=== PATIENT | female | born 1980 | race Caucasian/White ===

== ENCOUNTER → 2017-02-12 | Outpatient (CLI) | payer OTHER ==
[2017-02-12 14:24] LABS: Hemoglobin A1C 5.5 % (4.2-6.1)
== END | disposition home or self-care (01) ==
LOC: LABWHC1 10:21
PROVIDERS: ATTEND Pediatrics
DX: R73.01 Impaired fasting glucose (principal)
CPT/HCPCS: 36415; 83036

== ENCOUNTER → 2020-12-05 | Outpatient (CLI) | payer OTHER ==
--- NOTE | 2020-12-08 14:51 | MM ---
Reason for exam: screening (asymptomatic). Baseline mammogram. History: Family history of breast cancer in paternal aunt. Took hormonal contraceptives for 8 years beginning at age 18. Physical Findings: Nurse did not find any significant physical abnormalities on exam. MG 3D Screening Mammo W/Cad Bilateral CC and MLO view(s) were taken. Scattered fibroglandular tissue is seen bilaterally. Multiple bilateral asymmetries and medial right ultrasound and inferior central and left upper outer quadrant ultrasound are recommended. ASSESSMENT: Incomplete: need additional imaging evaluation, BI-RAD 0 RECOMMENDATION: Ultrasound of both breasts. [facility] will attempt to contact patient to return for ultrasound. DAVION
== END | disposition home or self-care (01) ==
LOC: RADMAMWWP 14:04
PROVIDERS: ATTEND Obstetrics & Gynecology
DX: Z12.31 Encounter for screening mammogram for malignant neoplasm of breast (principal); Z80.3 Family history of malignant neoplasm of breast
CPT/HCPCS: 77063; 77067

== ENCOUNTER → 2020-12-29 | Outpatient (CLI) | payer OTHER ==
--- NOTE | 2020-12-29 10:46 | USB ---
Reason for exam: additional evaluation requested from abnormal screening. History: Family history of breast cancer in paternal aunt. Took hormonal contraceptives for 8 years beginning at age 18. Physical Findings: Nurse did not find any significant physical abnormalities on exam. US Breast Workup Limited JARETT Right limited breast ultrasound including focal area of concern, retroareolar and axilla demonstrates a 6 x 3 x 7mm oval, cystic lesion at 2 o'clock and a 6 x 4 x 6mm oval, solid, hypoechoic lesion at 3 o'clock. Left limited breast ultrasound including focal area of concern, retroareolar and axilla demonstrates a 6 x 2 x 4mm oval, cystic lesion at 3 o'clock. These results were verbally communicated with the patient and result sheet given to the patient on 12/29/20. ASSESSMENT: Probably benign, BI-RAD 3 RECOMMENDATION: Follow-up diagnostic mammogram and ultrasound of both breasts in 6 months.
== END | disposition home or self-care (01) ==
LOC: RADUSWWP 08:05
PROVIDERS: ATTEND Obstetrics & Gynecology
DX: N60.01 Solitary cyst of right breast (principal); N60.02 Solitary cyst of left breast; Z80.3 Family history of malignant neoplasm of breast

== ENCOUNTER → 2021-08-10 | Outpatient (CLI) | payer OTHER ==
--- NOTE | 2021-08-11 12:11 | MM ---
Reason for exam: follow-up at short interval from prior study. Last mammogram was performed 8 months ago. History: Family history of breast cancer in paternal aunt. Took hormonal contraceptives for 8 years beginning at age 18. Physical Findings: A clinical breast exam by your physician is recommended on an annual basis and results should be correlated with mammographic findings. MG 3D Diag Mammo W/Cad JARETT Bilateral CC and MLO view(s) were taken. LM, spot compression CC, and spot compression MLO view(s) were taken of the left breast. Prior study comparison: December 05, 2020, bilateral MG 3d screening mammo w/cad. There are scattered fibroglandular densities. Finding: There is a typically benign, increased 7 mm equal density (isodense), circumscribed oval mass located 8 cm from the nipple in the lower outer quadrant, middle position of the right breast. There is a chronic nodularity bilaterally. On MLO there are increased hyperdense oval densities. New finding since December 05, 2020. These results were verbally communicated with the patient and result sheet given to the patient on 08/10/21. ASSESSMENT: Incomplete: need additional imaging evaluation, BI-RAD 0 RECOMMENDATION: Ultrasound of both breasts.
--- NOTE | 2021-08-11 12:52 | USB ---
Reason for exam: additional evaluation requested from abnormal screening. History: Family history of breast cancer in paternal aunt. Took hormonal contraceptives for 8 years beginning at age 18. US Breast Limited BILAT Right limited breast ultrasound including focal area of concern, retroareolar and axilla demonstrates a 0.8 x 0.5 x 0.9cm cystic lesion at 2 o'clock, a 0.6 x 0.3 x 0.9cm solid lesion at 3 o'clock and a 0.5 x 0.5 x 0.6cm solid lesion at 4 o'clock. Biopsy solid lesions. Left limited breast ultrasound including focal area of concern, retroareolar and axilla demonstrates a 0.5 x 0.2 x 0.4cm lesion at 3 o'clock, a 1.5 x 1.0 x 1.4cm lobular, solid lesion at the nipple, biopsy recommended and a 0.6 x 0.6 x 0.8cm solid adjacent lesion at the nipple, biopsy recommended. These results were verbally communicated with the patient and result sheet given to the patient on 08/10/21. ASSESSMENT: Suspicious, BI-RAD 4 RECOMMENDATION: Ultrasound core biopsy of both breasts. (4 sites) Called Dr. Mayorga's office with mammographic findings and has scheduled an appointment for the patient for 09/18/21 at 4:[address] Bee. Biopsy scheduled for 09/23/21 at 8:00. PRELIMINARY REPORT CALLED AND FAXED TO DR. BEE ON 08/10/21.
== END | disposition home or self-care (01) ==
LOC: RADMAMWWP 13:29
PROVIDERS: ATTEND Obstetrics & Gynecology
DX: R92.8 Other abnormal and inconclusive findings on diagnostic imaging of breast (principal); Z80.3 Family history of malignant neoplasm of breast
CPT/HCPCS: 77062; 77066

== ENCOUNTER → 2021-09-18 | Outpatient (CLI) | payer OTHER ==
[2021-09-18 12:58] VITALS: BP 127/86; PULSE 81; RESP 16; TEMP 98.4
--- NOTE | 2021-09-18 13:49 | P.GSHP ---
History of Present Illness H&P Date: 09/18/21 Chief Complaint: Abnormal bilateral ultrasound of the breast Ananya is a 40 year old white female seen in consultation for Dr. Mayorga demonstrating radiographic abnormality in both breasts. She does not feel any lumps masses or nodules of concern in either breast. On a routine mammogram performed in she was recommended to undergo bilateral breast ultrasounds. This was performed on . The ultrasound revealed 2 solid lesions of concern in the right breast located at 3:00 and one at 4:00 and 2 solid lesions of concern in the left breast. Near the nipple areolar complex. Recommendation was for ultrasound-guided core biopsy of 4 sites 2 in each breast. The patient has never had any surgery on her breasts before. She has not had any nipple discharge or skin changes. She is not complaining of any recent trauma or infection of the breast. The patient is not taking any hormone replacement therapy. Caffeine:16 oz of mountian dew/day; 1 cup coffee/day nicotine: none chocolate: rare BCP: used them until 2005 (7 years) Family History: Aunt paternal: metastatic breast cancer Paternal grandfather: Skin cancer Paternal grandmother: Colon cancer Hormonal History: menarche: 12 , breast fed; no, age at first : 29 Surgical history: Laparoscopic examination of the fallopian tubes Medical history: Polycystic ovarian disease induced congestive heart failure Social History: nicotine: none alcohol: rare drugs: none - Constitutional Constitutional: Denies chills, Denies fever - EENT Eyes: denies blurred vision, denies pain Ears: deny: decreased hearing, tinnitus Ears, nose, mouth and throat: Denies headache, Denies sore throat - Breasts Breasts: bilateral: as per HPI - Cardiovascular Cardiovascular: Reports as per HPI - Respiratory Respiratory: Denies cough, Denies 7 - Gastrointestinal Gastrointestinal: Denies abdominal pain, Denies diarrhea, Denies nausea, Denies vomiting - Genitourinary (Female) Genitourinary: Denies dysuria, Denies hematuria - Menstruation Menstruation: Reports period normal - Musculoskeletal Musculoskeletal: Denies myalgias - Integumentary Integumentary: Denies pruritus, Denies rash - Neurological Neurological: Denies numbness, Denies weakness - Psychiatric Psychiatric: Denies anxiety, Denies depression - Endocrine Endocrine: Denies fatigue, Denies weight change - Hematologic/Lymphatic Comment: none - Allergic/Immunologic Allergic/Immunologic: Reports as per HPI Past Medical History Past Medical History: No Reported History Additional Past Medical History / Comment(s): Oligomenorrhea and infertility, congestive heart failure 2014 History of Any Multi-Drug Resistant Organisms: None Reported Additional Past Surgical History / Comment(s): OVARIAN SURGERY Past Anesthesia/Blood Transfusion Reactions: No Reported Reaction Past Psychological History: No Psychological Hx Reported Smoking Status: Never smoker Past Alcohol Use History: None Reported Past Drug Use History: None Reported - Past Family History Father Family Medical History: Hypertension Mother Family Medical History: Hypertension, Myocardial Infarction ([place]) Medications and Allergies Home Medications Medication Instructions Recorded Confirmed Type Acetaminophen Tab [Tylenol Tab] 325 mg PO Q6H PRN 12/17/14 09/18/21 History Ibuprofen [Motrin] 200 - 400 mg PO Q6HR PRN 12/17/14 09/18/21 History Furosemide [Lasix] 40 mg PO DAILY PRN 09/16/21 09/18/21 History Allergies Allergy/AdvReac Type Severity Reaction Status Date / Time No Known Allergies Allergy Verified 09/18/21 12:53 Surgical - Exam Vital Signs Temp Pulse Resp BP Pulse Ox 98.4 F 81 16 127/86 99 09/18/21 12:54 09/18/21 12:54 09/18/21 12:54 09/18/21 12:54 09/18/21 12:54 BMI 39.3 - General no distress - Eyes normal ocular movement - ENT no hearing loss, no congestion - Neck trachea midline - Respiratory normal respiratory effort - Cardiovascular Rhythm: regular Heart Sounds: normal: S1, S2 - Abdomen Abdomen: soft - Integumentary normal turgor - Neurologic no disoriented, no combative - Musculoskeletal normal gait, normal posture - Psychiatric oriented to time, oriented to person, oriented to place, speech is normal, memory intact Breast Exam: BRA: 38C inspection: Bilateral grade 3 ptosis Palpation: Right breast: Multi-positional exam fibrocystic changes no discrete dominant masses or nodules of concern Right axilla: No adenopathy of concern Left breast: Multi-positional exam fibrocystic changes no dominant masses or nodules of concern Left axilla: No adenopathy of concern Results Mammogram and ultrasound reviewed in detail with Dr. You Assessment and Plan Assessment: Impression: Radiographic abnormality bilateral breast/solid lesion 3:00 and 4:00 right breast on ultrasound Left breast solid lesion at the nipple 2 Plan: Ultrasound core biopsy 2 solid lesions in the right breast at 3:00 and 4:00, ultrasound core biopsy 2 solid lesions in the left breast at the level of the nipple This was reviewed with Dr. You Follow up after ultrasound core biopsies Risks and benefits of the procedure discussed with the patient she understands and wishes to proceed CC: Dr. Mayorga
== END ==
LOC: WWCWWP 12:05
PROVIDERS: ATTEND Surgery
DX: R92.8 Other abnormal and inconclusive findings on diagnostic imaging of breast (principal); I50.9 Heart failure, unspecified

== ENCOUNTER → 2021-09-23 | Day surgery (SDC) | payer OTHER ==
[2021-09-23 07:27] VITALS: RESP 16
[2021-09-23 09:20] VITALS: BP 117/79; PULSE 74; TEMP 98.1
--- NOTE | 2021-09-23 12:44 | USB ---
EXAMINATION TYPE: US biopsy breast VAD RT DATE OF EXAM: 09/23/2021 CLINICAL HISTORY: R92.8 ABNORMAL MAMMOGRAM. Abnormal ultrasound TECHNIQUE: Ultrasound guided vaccuum assisted core biopsy of bilateral breasts. Prior ultrasound is reviewed with the referring surgeon. There appear to be 2 lesions within each breast. However, the lesions are directly adjacent. The lesions will be biopsied in tandem and submitted is a single sample, one sample for each breast. COMPARISON: Ultrasound 08/10/2021 FINDINGS: The ultrasound guided core biopsy procedure was explained to the patient. The risks, benefits, alternatives were discussed. An informed consent was then obtained. Timeout was performed. Right breast: 3:00 position. The patient was placed in supine positioning for imaging and for the procedure. The overlying skin was prepped with betadine and sterilely draped in usual sterile fashion. Lidocaine 1% was used as anesthetic into the skin and deeper breast tissue up to area of concern in the breast. A small skin storm was made with surgical scalpel. Under ultrasound guidance, a 12-gauge vacuum assisted biopsy device was used to obtain 5 core samples. A biopsy clip was left in lesion. Coil clip was placed. Left breast posterior to the nipple: The patient was placed in supine positioning for imaging and for the procedure. The overlying skin was prepped with betadine and sterilely draped in usual sterile fashion. Note is made of multiple vascular structures in this region. Lidocaine 1% epinephrine was used as anesthetic into the skin and deeper breast tissue up to area of concern in the breast. A small skin storm was made with surgical scalpel. Under ultrasound guidance, a 12-gauge vacuum assisted biopsy device was used to obtain 4 core samples of the larger lesion with 2 additional samples of the smaller adjacent lesion. A biopsy clip was left in lesion. Wing clip was placed. Good hemostasis was obtained with direct pressure. There are some mildly was controlled with direct pressure of the right breast. No significant bleeding was noted on the left. Discharge instructions were discussed with the patient. The patient will follow up with the referring physician for results. Postprocedure mammogram: The patient was transferred to mammography for physician ordered post procedure mammogram for clip placement verification. The clips are in the expected region of the biopsy. The patient tolerated the procedure well without any immediate complication. The patient was discharged to home in stable condition. IMPRESSION: 1. Successful ultrasound guided biopsy bilateral breasts. Recommendations: 1. Recommendations are pending pathology results. Pathology Results: Benign A. RIGHT BREAST, 3:00 POSITION, CORE BIOPSY: Fibroadenoma with focal myxoid change and usual ductal hyperplasia. B. LEFT BREAST NIPPLE, CORE BIOPSY: Fibroadenoma with focal myxoid change and adjacent breast tissue having proliferative fibrocystic change with papillary apocrine metaplasia and focal columnar cell change. Recommendation Follow up ultrasound of bilateral breast in 6 months. DAVION
== END ==
LOC: RADUSWWP 07:02
PROVIDERS: ATTEND Surgery
DX: D24.2 Benign neoplasm of left breast (principal); D24.1 Benign neoplasm of right breast; N60.82 Other benign mammary dysplasias of left breast
CPT/HCPCS: 88305; 77066; 19083; 19084; A4648; J2001

== ENCOUNTER → 2021-10-02 | Outpatient (CLI) | payer OTHER ==
[2021-10-02 11:34] VITALS: BP 129/85; PULSE 85; RESP 18; TEMP 99.1
--- NOTE | 2021-10-02 12:02 | P.PN ---
Subjective Progress Note Date: 10/02/21 Principal diagnosis: bilateral fibroadenoma Ananya is a 40 year old white female status post bilateral breast ultrasound core biopsy on 09-23-21. Pathology was positive for bilateral fibroadenomas. Initially there was recommendation for biopsy of 2 sites in each breast however the sites were felt to be contiguous with each other when the biopsy was performed. The patient tolerated the procedure without difficulty. Objective - Vital Signs Vital signs: Vital Signs Temp 99.1 F 10/02/21 11:32 Pulse 85 10/02/21 11:32 Resp 18 10/02/21 11:32 BP 129/85 10/02/21 11:32 Pulse Ox 99 10/02/21 11:32 Intake & Output 10/01/21 10/02/21 10/02/21 18:59 06:59 18:59 Weight 97.522 kg - Constitutional General appearance: Present: cooperative - EENT Eyes: Present: EOMI ENT: Present: hearing grossly normal - Neck Neck: Present: normal ROM - Respiratory Respiratory: bilateral: CTA - Cardiovascular Rhythm: regular Heart sounds: normal: S1, S2 - Integumentary Integumentary Comment(s): Biopsy sites each breast clean and dry no evidence of infection or hematoma Assessment and Plan Assessment: Impression: Bilateral breast fibroadenomas asymptomatic and nonpalpable Plan: Bilateral ultrasound to follow size of fibroadenomas in 6 months Patient will follow up after ultrasounds she does not wish these to be removed Cc: Dr. Zarate
== END ==
LOC: WWCWWP 11:15
PROVIDERS: ATTEND Surgery
DX: D24.2 Benign neoplasm of left breast (principal); D24.1 Benign neoplasm of right breast

== ENCOUNTER → 2022-04-05 | Outpatient (CLI) | payer OTHER ==
--- NOTE | 2022-04-05 09:42 | USB ---
Reason for Exam: Follow-up at short interval from prior study. Patient History: Menarche at age 12. First Full-Term at age 29. Hormonal Contraceptives for 8 years from age 18 until age 26. 09/23/2021, Benign Core Biopsy on the right side. 09/23/2021, Benign Core Biopsy on the left side. Paternal aunt had breast cancer. Risk Values: Nadja 5 year model risk: 1.8%. NCI Lifetime model risk: 17.4%. Technique: Method: Targeted. Prior Study Comparison: 12/05/2020 Bilateral Screening Mammogram, [facility]. 08/10/2021 Bilateral Diagnostic Mammogram, [facility]. 08/10/2021 Bilateral Diagnostic Ultrasound, [facility]. 09/23/2021 Bilateral Diagnostic Mammogram, [facility]. Findings: The axilla of both breasts and the retroareolar of both breasts were scanned. Limited ultrasound of the right breast at 3:00 with additional evaluation of the nipple and axilla were obtained. Biopsy clip demonstrated in the right breast 3:00 3 cm from the nipple with corresponding irregular hypoechoic lesion measuring 0.8 x 0.4 x 0.8 cm without internal color flow. This is relatively stable from prior examination corresponds to pathology results of fibroadenoma. Limited ultrasound left breast at the nipple and axillary region was obtained. Biopsy clip demonstrated within the left breast with adjacent ovoid heterogenous hypoechoic mass measuring 0.8 x 0.7 x 0.5 cm corresponding to biopsy-proven fibroadenoma. No internal vascularity identified. No significant change from prior examination. Overall Assessment: Benign, BI-RAD 2 Management: Screening Mammogram of both breasts in 6 months. A clinical breast exam by your physician is recommended on an annual basis and results should be correlated with mammographic findings. This exam should not preclude additional follow-up of suspicious palpable abnormalities. ??Results were given to the patient verbally at the time of exam. Electronically signed and approved by: Neo Pacheco D.O.
== END | disposition home or self-care (01) ==
LOC: RADUSWWP 08:46
PROVIDERS: ATTEND Surgery
DX: N60.01 Solitary cyst of right breast (principal)

== ENCOUNTER → 2023-01-04 | Outpatient (CLI) | payer OTHER ==
--- NOTE | 2023-01-04 13:01 | XR ---
EXAMINATION TYPE: XR knee 4V LT DATE OF EXAM: 01/04/2023 COMPARISON: NONE HISTORY: 42 year-old female M5 6.562 TECHNIQUE: 4 views FINDINGS: Trace joint effusion is nonspecific. Extensor mechanism is intact. Patella remains appropri ately situated along the trochlear groove. Trace marginal spurring at the medial compartment. No acut e fracture, subluxation, or dislocation. IMPRESSION: No acute osseous abnormality seen.
== END | disposition home or self-care (01) ==
LOC: RADXRMAIN 09:00
PROVIDERS: ATTEND Pediatrics
DX: M25.562 Pain in left knee (principal)

== ENCOUNTER → 2023-06-14 | Outpatient (CLI) | payer OTHER ==
--- NOTE | 2023-06-15 11:11 | MM ---
Reason for Exam: Screening (asymptomatic). Last mammogram was performed 1 year(s) and 8 month(s) ago. Patient History: Menarche at age 12. First Full-Term at age 29. Premenopausal. Hormonal Contraceptives for 8 years from age 18 until age 26. 09/23/2021, Benign Core Biopsy on the right side. 09/23/2021, Benign Core Biopsy on the left side. Paternal aunt had breast cancer. Risk Values: Nadja 5 year model risk: 2.0%. NCI Lifetime model risk: 17.2%. Prior Study Comparison: 12/05/2020 Bilateral Screening Mammogram, [facility]. 08/10/2021 Bilateral Diagnostic Mammogram, [facility]. 09/23/2021 Bilateral Diagnostic Mammogram, [facility]. Tissue Density: There are scattered fibroglandular densities. Findings: Analyzed By CAD. Left breast biopsy clip. There is no suspicious group of microcalcifications or new suspicious mass. Overall Assessment: Benign, BI-RAD 2 Management: Screening Mammogram of both breasts in [address] [facility] will attempt to contact patient to return for supplemental views and ultrasound if indicated. Patient should continue monthly self-breast exams. A clinical breast exam by your physician is recommended on an annual basis. This exam should not preclude additional follow-up of suspicious palpable abnormalities. Note on Nadja scores and lifetime risk: 1. A Nadja score greater than 3% is considered moderate risk. If this is the case, consider specialist referral to assess eligibility for a risk reducing agent. 2. If overall lifetime risk for the development of breast cancer is 20% or higher, the patient may qualify for future screening with alternating mammogram and breast MRI. Electronically signed and approved by: Toni Ivan DO
== END | disposition home or self-care (01) ==
LOC: RADMAMWWP 07:29
PROVIDERS: ATTEND Obstetrics & Gynecology
DX: Z12.31 Encounter for screening mammogram for malignant neoplasm of breast (principal); Z80.3 Family history of malignant neoplasm of breast
CPT/HCPCS: 77063; 77067

== ENCOUNTER → 2024-06-21 | Outpatient (CLI) | payer OTHER ==
--- NOTE | 2024-06-25 07:43 | MM ---
Reason for Exam: Screening (asymptomatic). Last mammogram was performed 1 year(s) and 1 month(s) ago. Patient History: Menarche at age 12. First Full-Term at age 29. Premenopausal. Hormonal Contraceptives for 8 years from age 18 until age 26. 09/23/2021, Benign Core Biopsy on the right side. 09/23/2021, Benign Core Biopsy on the left side. Paternal aunt had breast cancer. Risk Values: Nadja 5 year model risk: 2.1%. NCI Lifetime model risk: 16.9%. Prior Study Comparison: 08/10/2021 Bilateral Diagnostic Mammogram, [facility]. 09/23/2021 Bilateral Diagnostic Mammogram, [facility]. 06/14/2023 Bilateral MG 3D screening mammo w/cad, [facility]. Tissue Density: There are scattered areas of fibroglandular density. Findings: Analyzed By CAD. Left breast biopsy clip. Right breast: There is no suspicious group of microcalcifications or new suspicious mass. Benign-appearing calcifications right breast. Left breast: Stable masslike area with biopsy clip. There is no suspicious group of microcalcifications or new suspicious mass. Overall Assessment: Negative, BI-RAD 1 Management: Screening Mammogram of both breasts in [address] [facility] will attempt to contact patient to return for supplemental views and ultrasound if indicated. Patient should continue monthly self-breast exams. A clinical breast exam by your physician is recommended on an annual basis. This exam should not preclude additional follow-up of suspicious palpable abnormalities. Note on Nadja scores and lifetime risk: 1. A Nadja score greater than 3% is considered moderate risk. If this is the case, consider specialist referral to assess eligibility for a risk reducing agent. 2. If overall lifetime risk for the development of breast cancer is 20% or higher, the patient may qualify for future screening with alternating mammogram and breast MRI. [facility], , 06/25/2024 7:40 AM. Electronically signed and approved by: Toni Ivan DO
== END | disposition home or self-care (01) ==
LOC: RADMAMWWP 14:14
PROVIDERS: ATTEND Obstetrics & Gynecology
DX: Z12.31 Encounter for screening mammogram for malignant neoplasm of breast (principal); Z80.3 Family history of malignant neoplasm of breast; R92.323 Mammographic fibroglandular density, bilateral breasts; Z98.82 Breast implant status
CPT/HCPCS: 77063; 77067